=== PATIENT | male | born 1965 | race Caucasian/White ===

== ENCOUNTER 2017-11-16 20:45 | Emergency (ER) | payer BC, OTHER | END 2017-11-16 22:07 | disposition home or self-care (01) | LOC: E/R 22:07 | DX: S99.911A Unspecified injury of right ankle, initial encounter (principal); V19.40XA Pedal cycle driver injured in collision with unspecified motor vehicles in traffic accident, initial encounter | CPT/HCPCS: 73610; 73610-RT; 99283-25 ==